=== PATIENT | female | born 1985 | race Caucasian/White ===

== ENCOUNTER 2023-09-03 20:43 | Emergency (ER) | payer SELFPAY ==
[~2023-09-03] VITALS: Ht 162.6 cm; Wt 59.0 kg
[2023-09-03 20:52] VITALS: BP 138/66; PULSE 128; RESP 18; TEMP 98; O2SAT 98
[2023-09-03] MEDS: LORazepam 2 MG/ML VIAL IM ONE (21:09)
[2023-09-03] MEDS: HALOPERIDOL IM 5 MG/ML VIAL IM ONE (21:11)
[2023-09-03] MEDS ORDERED: diphenhydrAMINE 50 MG/ML VIAL ONE (21:25)
[2023-09-03] MEDS: diphenhydrAMINE 50 MG/ML VIAL IM ONE (21:26)
[2023-09-03 21:36] LABS: BASOPHILS # (AUTO) 0.1 K/uL (0.00-0.22); BASOPHILS % (AUTO) 1.1 % (0.0-2.0); EOSINOPHILS # (AUTO) 0.1 K/uL (0-0.4); EOSINOPHILS % (AUTO) 0.5 % (0.0-4.0); HEMATOCRIT 36.5 % (36-48); HEMOGLOBIN 12.4 g/dL (12.0-16.0); LYMPHOCYTES # (AUTO) 3.4 K/uL (2.5-16.5); LYMPHOCYTES % (AUTO) 30.8 % (20.5-51.1); MEAN CORPUSCULAR HEMOGLOBIN 26 pg (27-31); MEAN CORPUSCULAR HGB CONC 34 g/dL (33-37); MEAN CORPUSCULAR VOLUME 77.2 fL (80-94); MONOCYTES # (AUTO) 0.6 K/uL (0.8-1.0); MONOCYTES % (AUTO) 5.2 % (1.7-9.3); NEUTROPHILS # (AUTO) 6.8 K/uL (1.8-7.7); NEUTROPHILS % (AUTO) 62.4 % (42.2-75.2); PLATELET COUNT (AUTO) 333 K/uL (140-450); RED BLOOD CELL COUNT(AUTO) 4.72 MIL/uL (4.20-5.40); RED CELL DISTRIBUTION WIDTH 16.6 % (11.6-13.7); WHITE BLOOD COUNT (AUTO) 10.9 K/uL (4.8-10.8)
[2023-09-03 21:47] LABS: CALCIUM 8.6 mg/dL (8.5-10.1); CARBON DIOXIDE 20.6 mmol/L (21-32); CREATININE 0.6 mg/dL (0.6-1.3); POTASSIUM 3.6 mmol/L (3.5-5.1)
[2023-09-03 22:07] VITALS: BP 138/66; PULSE 128; RESP 18; TEMP 98; O2SAT 98
== END 2023-09-03 22:03 ==
LOC: MED 20:43
DX: Z02.89 Encounter for other administrative examinations (principal); V49.88XA Car occupant (driver) (passenger) injured in other specified transport accidents, initial encounter; Y93.89 Activity, other specified; Y92.89 Other specified places as the place of occurrence of the external cause; Y99.8 Other external cause status
CPT/HCPCS: 36415; 80048; 85025; 96372; 99284; J1200; J1630; J2060